=== PATIENT | female | born 1985 | race Caucasian/White ===

== ENCOUNTER 2018-03-07 16:49 | Emergency (ER) | payer MEDICAID ==
[2018-03-07] MEDS ORDERED: LORAZEPAM 0.5 MG TABLET PO ONE (17:22)
--- NOTE | 2018-03-07 17:26 | Emergency Department Record ---
Anxiety - General Chief Complaint: Anxiety Stated Complaint: ANXIETY Time Seen by Provider: 03/07/18 17:22 Source: Patient Mode of Arrival: Ambulatory Limitations: No limitations - History of Present Illness Initial Comments: Pt with hx of anxiety and depression. Off meds for 6 months. No suicidal. Anxiety with recent issues with ex and child custody issues. Good support system with boy friend in ED> MD Complaint: Anxiety Onset/Timin -: Days(s) Symptoms: Dry mouth, Extremity numbness/tingling, Periorial numbness/tingling Place: Home Previous History of Same: Yes Severity: Severe Quality: Constant Provoking factors: None known Improves With: Nothing Worsens With: Nothing Associated symptoms: Denies other symptoms - Related Data Home Medications: Home Medications Medication Instructions Recorded Confirmed Last Taken Dicyclomine HCl 10 mg PO DAILY 03/07/18 03/07/18 Unknown Omeprazole 40 mg PO DAILY 03/07/18 03/07/18 Unknown Previous Rx's Medication Instructions Recorded Alprazolam [Xanax] 0.25 mg PO Q8HR PRN 6 Days #12 03/07/18 tablet Allergies/Adverse Reactions: Allergies Allergy/AdvReac Type Severity Reaction Status Date / Time Sulfa (Sulfonamide Allergy ITCHING Verified 03/07/18 16:59 Antibiotics) Travel Screening - Travel/Exposure Within Last 30 Days Have you traveled within the last 30 days?: No Review of Systems Constitutional: Denies: Chills, Fever Eyes: Denies: Eye discharge ENT: Denies: Congestion Respiratory: Denies: Cough Cardiovascular: Denies: Arrhythmia, Chest pain, Syncope Endocrine: Denies: Fatigue, Polydipsia Gastrointestinal: Denies: Abdominal pain Genitourinary: Denies: Abnormal menses Musculoskeletal: Denies: Back pain Neurological: Denies: Abnormal gait, Numbness, Tremors Psychiatric: Reports: As per HPI, Anxiety. Denies: Homicidal thoughts, Suicidal thoughts, Visual hallucinations Hematological/Lymphatic: Denies: Anemia Past Medical History - SOCIAL HISTORY Smoking Status: Current every day smoker Alcohol Use: Rare Drug Use: None - RESPIRATORY Hx Respiratory Disorders: No - CARDIOVASCULAR Hx Cardio Disorders: No - NEURO Hx Neuro Disorders: No - GI Hx GI Disorders: Yes Hx Reflux: Yes Hx Irritable Bowel: Yes - Hx Genitourinary Disorders: No - ENDOCRINE Hx Endocrine Disorders: No - MUSCULOSKELETAL Hx Musculoskeletal Disorders: No - PSYCH Hx Psych Problems: Yes Hx Anxiety: Yes Comment:: panic attacks - HEMATOLOGY/ONCOLOGY Hx Hematology/Oncology Disorders: No Family Medical History Any Significant Family History?: No Physical Exam - General General Appearance: Alert, Oriented x3, Cooperative, Mild distress - Head Head exam: Atraumatic - Eye Eye exam: Normal appearance, PERRL - ENT ENT exam: Normal exam Ear exam: Normal external inspection Nasal Exam: Normal inspection Mouth exam: Normal external inspection Teeth exam: Normal inspection - Neck Neck exam: Normal inspection, Full ROM. negative: Lymphadenopathy, Tenderness - Respiratory Respiratory exam: Normal lung sounds bilaterally. negative: Rhonchi, Wheezes - Cardiovascular Cardiovascular Exam: Regular rate, Normal rhythm, Normal heart sounds. negative : Tachycardia - GI/Abdominal GI/Abdominal exam: Soft, Normal bowel sounds. negative: Tenderness - Extremities Extremities exam: Normal inspection. negative: Pedal edema - Back Back exam: Reports: Normal inspection. Denies: Paraspinal tenderness - Neurological Neurological exam: Alert, Normal gait, Oriented X3. negative: Abnormal gait - Psychiatric Psychiatric exam: Anxious, Normal affect, Normal mood. negative: Depressed, Flat affect, Suicidal ideation - Skin Skin exam: Normal color. negative: Rash Course Vital Signs 03/07/18 16:51 Temperature 97.7 F Pulse Rate 100 H Respiratory 20 Rate Blood Pressure 127/85 Pulse Ox 100 - Reevaluation(s) Reevaluation #1: 03/07/18 18:18 Much improved. Relaxed. Home with appointment with your doctor as scheduled in 2 days. Disposition Disposition: Discharge Clinical Impression: Anxiety as acute reaction to exceptional stress Disposition: Home, Self-Care Condition: (1) Good Instructions: Social Anxiety Disorder (ED) Prescriptions: Alprazolam [Xanax] 0.25 mg PO Q8HR PRN 6 Days #12 tablet PRN Reason: Anxiety Forms: Patient Portal Access Quality - Quality Measures Quality Measures: N/A - Blood Pressure Screening Does Patient Have Any of the Following: No Blood Pressure Classification: Pre-Hypertensive BP Reading Systolic Measurement: 127 Diastolic Measurement: 85 Screening for High Blood Pressure: < Pre-Hypertensive BP, F/U Documented > [ [id number]] Pre-Hypertensive Follow-up Interventions: Follow-up with rescreen every year.
== END 2018-03-07 18:51 | disposition home or self-care (01) ==
LOC: ER 16:49
DX: F41.1 Generalized anxiety disorder (principal); F43.0 Acute stress reaction; R42 Dizziness and giddiness; R51 Headache; R06.02 Shortness of breath; F17.210 Nicotine dependence, cigarettes, uncomplicated
CPT/HCPCS: 99282